=== PATIENT | female | born 1945 | race Caucasian/White ===

== ENCOUNTER 2019-12-30 21:21 | Inpatient (IN) | payer MEDICARE ==
[~2019-12-30] VITALS: Ht 170.2 cm; Wt 76.4 kg
[2019-12-30 21:54] LABS: BASOPHILS 0.6 % (0-2); EOSINOPHILS 0.7 % (0-7); HEMATOCRIT 47.1 % (36.0-48.0); HEMOGLOBIN 14.4 g/dL (12-16); IMMATURE GRANULOCYTES 0.5 % (0-5); LYMPHOCYTES 11.2 % (15-50); MCH 31.2 pg (26.0-34.0); MCHC 30.6 g/dL (31.0-37.0); MCV 101.9 fL (80.0-100.0); MONOCYTES 4.2 % (2-11); NEUTROPHILS 82.8 % (40-80); PLATELET COUNT 286 10x3/uL (130-400); RBC 4.62 10x6/uL (4.00-5.40); RDW 12.8 % (11.5-14.5); WBC 8.9 10x3/uL (4.8-10.8)
[2019-12-30 22:12] LABS: CALC OSMOLALITY 270 mosm/kg (275-300); CALCIUM 7.9 mg/dL (8.5-10.1); CARBON DIOXIDE 17.1 mmol/L (21.0-32.0); CHLORIDE - SERUM 104 mmol/L (98-107); GLUCOSE 84 mg/dL (74-106); POTASSIUM - SERUM 5.2 mmol/L (3.5-5.1); SODIUM 135 mmol/L (136-145); UREA NITROGEN 18 mg/dL (7-18); eGFR NON AFRICAN AMERICAN 58 mL/min (90-120)
[2019-12-30] MEDS ORDERED: MELOXICAM PO (22:23)
[2019-12-30] MEDS ORDERED: LISINOPRIL40 MG PO (22:24)
[2019-12-30] MEDS ORDERED: XANAX1 MG PO (22:25)
[2019-12-30 22:29] LABS: ALBUMIN 3.2 g/dL (3.4-5.0); ALKALINE PHOSPHATASE 89 U/L (30-120); ALT (SGPT) 19 U/L (10-68); BILIRUBIN - TOTAL 0.12 mg/dL (0.2-1.3); CKMB 1.3 U/L (0.0-3.6); CREATINE KINASE 151 UL (21-215); MAGNESIUM - SERUM 2.3 mg/dL (1.8-2.4); PROTEIN - SERUM 7.3 g/dL (6.4-8.2); TROPONIN-I < 0.017 ng/mL (0.000-0.060)
--- NOTE | 2019-12-30 22:33 | NUR ---
PT UP ON BEDPAN- VOIDED WITHOUT DIFFICULTY. URINE TO LAB.
[2019-12-30 22:38] LABS: BILIRUBIN NEGATIVE (NEGATIVE); EPITHELIAL CELLS 0-5 /hpf (0-5); GLUCOSE NEGATIVE (NEGATIVE); KETONE SMALL mg/dL (NEGATIVE); NITRITE NEGATIVE (NEGATIVE); RED CELLS - URINE RARE /hpf (0-5); UROBILINOGEN NORMAL (NORMAL); WHITE CELLS - URINE 0-5 /hpf (NEGATIVE)
[2019-12-30 22:39] LABS: AMORPHOUS SEDIMENT <1+ /lpf (NONE SEEN); BACTERIA MODERATE /hpf (NEGATIVE)
[2019-12-30 22:43] LABS: UDS - AMPHET NEGATIVE QUAL (NEGATIVE); UDS - BARB NEGATIVE QUAL (NEGATIVE); UDS - BENZO POSITIVE QUAL (NEGATIVE); UDS - COCAINE NEGATIVE QUAL (NEGATIVE); UDS - OPIATE NEGATIVE QUAL (NEGATIVE); UDS - PCP NEGATIVE QUAL (NEGATIVE); UDS - THC NEGATIVE QUAL (NEGATIVE)
--- NOTE | 2019-12-30 23:11 | NUR ---
ABG'S IN PROGRESS. PT RESTING QUIETLY. CALLED AND UPDATED SPOUSE, PATRICK HAYDEN AT [phone]. SPOUSE STATES PATIENT DROVE TO STORE YESTERDAY. PT STATES DRANK SCOTCH INSTEAD OF WINE TODAY- STATES "I DON'T KNOW WHY." REPORT TO KENYETTA JEFFERY.
[2019-12-31] VITALS (7 sets, daily range): BP systolic 111–147; BP diastolic 55–86; Ht 170.2 cm; Wt 76.4 kg
--- NOTE | 2019-12-31 00:41 | NUR ---
SPOUSE CALLED AND UPDATED WITH ADMISSION STATUS AND ROOM NUMBER.
--- NOTE | 2019-12-31 02:01 | NUR ---
ROCEPHIN STARTED AT 0104 FINISHED O134. 50ML INFUSED. MVI STARTED AT 0136 CONTINUED INFUSING ON TRANSFER TO FLOOR @ 125ML/HR NS BOLUS STARTED AT 0103 CONTINUED INFUSING ON TRANSFER TO FLOOR @ 999ML/HR
[2019-12-31] MEDS ORDERED: PROZAC40 MG PO (02:45)
[2019-12-31] MEDS ORDERED: TRAZODONE HCL150 MG PO (02:47)
[2019-12-31] MEDS ORDERED: GAVILAX510 GM PO (02:50)
[2019-12-31 04:53] LABS: ALBUMIN 2.6 g/dL (3.4-5.0); ANION GAP 18.1 mmol/L (8-16); BILIRUBIN - TOTAL 0.16 mg/dL (0.2-1.3); CARBON DIOXIDE 16.4 mmol/L (21.0-32.0); CREATININE - SERUM 0.9 mg/dL (0.6-1.3); POTASSIUM - SERUM 4.5 mmol/L (3.5-5.1)
--- NOTE | 2019-12-31 07:58 | NUR ---
PT LYING IN BED, IV TO LEFT AC CDI, PATENT, NS AT 75, MVI AT 125. PT STATES SHE IS HURTING ALL OVER AND VERY STIFF, ESPECIALLY ON LEFT SIDE. CINDER WORKER ARE EQUAL, ASSISTED PT TO BATHROOM, CL IN REACH, ASSUME PT CARE
--- NOTE | 2019-12-31 09:39 | NUR ---
PT WAS ON CLD TO START 12/31, CHANGED TO TODAY, PT INQUIRED WHY CL, UNSURE, AND UNABLE TO ANSWER PT QUESTION, ASKED PT TO ASK PUBLIC WEIGHER WHEN THEY MAKE ROUNDS
[2019-12-31 12:03] LABS: BASOPHILS 0.3 % (0-2); EOSINOPHILS 0.9 % (0-7); HEMATOCRIT 40.8 % (36.0-48.0); HEMOGLOBIN 12.3 g/dL (12-16); IMMATURE GRANULOCYTES 0.1 % (0-5); LYMPHOCYTES 13.8 % (15-50); MCHC 30.1 g/dL (31.0-37.0); MCV 102.8 fL (80.0-100.0); MEAN PLATELET VOLUME 10.1 fL (7.4-10.4); MONOCYTES 5.7 % (2-11); NEUTROPHILS 79.2 % (40-80); PLATELET COUNT 311 10x3/uL (130-400); RBC 3.97 10x6/uL (4.00-5.40); RDW 12.9 % (11.5-14.5); WBC 7.7 10x3/uL (4.8-10.8)
--- NOTE | 2019-12-31 16:55 | NUR ---
I have reviewed this patient and I concur with the Shift Assessment completed by the Licensed Practical Nurse today this shift.
--- NOTE | 2019-12-31 23:33 | NUR ---
REC'D CHGE OF SHIFT WALKING ROUNDS IN BED WATCHING DENIES PAIN AT PRESENT TIME.STATES HAS BEEN MORE AND MORE NERVOUS ALL DAY LONG.STATES TOOK XANAX EARLIER BUT DIDN'T SEEM TO HELP WILL CONTINUE TO MONITOR FOR ANY CHGES AND FOLLOW CURRENT PLAN OF CARE
[2020-01-01] VITALS: BP 150/78
[2020-01-01 04:00] VITALS: BP 148/81
[2020-01-01 05:30] LABS: BASOPHILS 0.5 % (0-2); EOSINOPHILS 4.4 % (0-7); HEMATOCRIT 36.5 % (36.0-48.0); HEMOGLOBIN 11.1 g/dL (12-16); IMMATURE GRANULOCYTES 0.2 % (0-5); LYMPHOCYTES 15.8 % (15-50); MCH 30.6 pg (26.0-34.0); MCHC 30.4 g/dL (31.0-37.0); MEAN PLATELET VOLUME 9.8 fL (7.4-10.4); MONOCYTES 10.5 % (2-11); NEUTROPHILS 68.6 % (40-80); RBC 3.63 10x6/uL (4.00-5.40); RDW 12.7 % (11.5-14.5); WBC 6.1 10x3/uL (4.8-10.8)
[2020-01-01 05:50] LABS: ALBUMIN 2.4 g/dL (3.4-5.0); ALKALINE PHOSPHATASE 66 U/L (30-120); BILIRUBIN - TOTAL 0.66 mg/dL (0.2-1.3); CARBON DIOXIDE 19.3 mmol/L (21.0-32.0); CHLORIDE - SERUM 106 mmol/L (98-107); MAGNESIUM - SERUM 2.4 mg/dL (1.8-2.4); POTASSIUM - SERUM 4.1 mmol/L (3.5-5.1); PROTEIN - SERUM 5.6 g/dL (6.4-8.2); SODIUM 138 mmol/L (136-145)
[2020-01-01 05:51] LABS: MCV 100.6 fL (80.0-100.0); PLATELET COUNT 247 10x3/uL (130-400)
[2020-01-01 06:37] LABS: CALC OSMOLALITY 274 mosm/kg (275-300); CREATININE - SERUM 0.6 mg/dL (0.6-1.3); GLUCOSE 97 mg/dL (74-106); UREA NITROGEN 10 mg/dL (7-18); eGFR NON AFRICAN AMERICAN > 90 mL/min (90-120)
[2020-01-01 06:39] LABS: ALT (SGPT) 18 U/L (10-68); CALCIUM 6.3 mg/dL (8.5-10.1)
[2020-01-01 08:48] VITALS: BP 129/81
--- NOTE | 2020-01-01 10:15 | NUR ---
SHE IS ALERT,TALKING. DENIES ANY NEEDS.
[2020-01-01 12:59] VITALS: BP 145/80
[2020-01-01 16:38] VITALS: BP 142/74
[2020-01-01 20:00] VITALS: BP 138/76
[2020-01-02] VITALS: BP 135/79
--- NOTE | 2020-01-02 02:37 | NUR ---
I have reviewed this patient and I concur with the Shift Assessment completed by the Licensed Practical Nurse today this shift.
[2020-01-02 04:00] VITALS: BP 143/84
[2020-01-02 05:41] LABS: BASOPHILS 0.5 % (0-2); EOSINOPHILS 8.8 % (0-7); IMMATURE GRANULOCYTES 0.3 % (0-5); LYMPHOCYTES 17.9 % (15-50); MCH 30.4 pg (26.0-34.0); MCHC 30.6 g/dL (31.0-37.0); MCV 99.4 fL (80.0-100.0); MEAN PLATELET VOLUME 9.8 fL (7.4-10.4); MONOCYTES 11.7 % (2-11); NEUTROPHILS 60.8 % (40-80); PLATELET COUNT 219 10x3/uL (130-400); RBC 3.62 10x6/uL (4.00-5.40); RDW 12.7 % (11.5-14.5); WBC 5.9 10x3/uL (4.8-10.8)
[2020-01-02 06:00] LABS: ALBUMIN 2.3 g/dL (3.4-5.0); ALKALINE PHOSPHATASE 66 U/L (30-120); ALT (SGPT) 18 U/L (10-68); BILIRUBIN - TOTAL 0.33 mg/dL (0.2-1.3); CHLORIDE - SERUM 108 mmol/L (98-107); CREATININE - SERUM 0.7 mg/dL (0.6-1.3); GLUCOSE 94 mg/dL (74-106); MAGNESIUM - SERUM 2.1 mg/dL (1.8-2.4); PROTEIN - SERUM 5.5 g/dL (6.4-8.2); SODIUM 138 mmol/L (136-145); eGFR NON AFRICAN AMERICAN 87 mL/min (90-120)
[2020-01-02 06:10] LABS: CALC OSMOLALITY 272 mosm/kg (275-300); UREA NITROGEN 5 mg/dL (7-18)
[2020-01-02 06:12] LABS: CALCIUM 6.7 mg/dL (8.5-10.1)
--- NOTE | 2020-01-02 08:00 | NUR ---
ASSESSMENT PER FLOW SHEET. PATIENT IS WITHOUT DISTRESS.CALL LIGHT IN REACH
[2020-01-02 08:54] VITALS: BP 151/91
--- NOTE | 2020-01-02 09:39 | CN ---
PATIENT NAME:BENJA HAYDEN MEDICAL RECORD: [id number] : 47 LOCATION:D.[id number] ADMIT DATE: 12/31/19 ACCOUNT: [id number] CONSULTING PHYSICIAN: ANGEL MARTE MD REFERRING PHYSICIAN: OLEG MATIAS MD DATE OF CONSULTATION: 01/01/2020 PSYCHIATRIC CONSULTATION IDENTIFYING DATA: The patient is 74 years old and she was admitted to the hospital secondary to some generalized weakness and gait instability. CHIEF COMPLAINT: Depression. HISTORY OF PRESENT ILLNESS: I am asked to see the patient because she reports depressive symptoms and says that she drinks too much. On detailed examination, the summary of her situation is that she is unhappy with her marriage. She and her of many years argue constantly. She drinks 4 wine coolers every night to deal with the anxiety that she has and she endorses numerous neurovegetative depressive symptoms. She does not have any psychotic symptoms nor does she have any thoughts of harming herself or others. She is simply unhappy and distressed. MENTAL STATUS EXAMINATION: The patient is awake, alert and fully oriented to person, place, time and situation. Her mood is depressed. Her affect is constricted. Thought processes are circumstantial. Memory, concentration, and abstraction abilities are mildly impaired and she denies that she would seek to harm herself or others as well as psychotic symptoms. ASSESSMENT: 1. Alcohol use disorder, moderate. 2. Major depressive episode, moderate severity without psychotic features. PLAN: At this time, the patient has been advised to stop drinking. Based on the amount she drinks it is unlikely that she will experience dangerous withdrawal symptoms assuming she is telling me a truthful amount. She says that she is aware that the drinking makes her more depressed and anxious and she says that she feels comfortable that she can stop it without any adverse effects. She has been on the Prozac for months and says that it has not helped. I am going to change her to a different antidepressant medication and that dosage will need to be monitored and titrated upward based on response. In addition to this, I have recommended outpatient psychiatric care and would recommend either the [facility], Dr. Klein or Dr. Kidd. She is furthermore in need of outpatient therapy, which can be arranged through one of the psychiatric offices or independently. I do not think she is acutely dangerous to herself or others, although she is quite distressed and I would recommend that her primary care doctor see her within a week or two of discharge just for followup to see if she is following these recommendations and to make any adjustments are coarse corrections that might be indicated. TRANSINT:[id number] Voice Confirmation ID: [id number] DOCUMENT ID: [id number] CONSULT REPORT [id number] BENJA HAYDEN, ANGEL REEVES at 0939 CC: [id number] DICTATION DATE: 01/01/20 1226 APPLICATION SUPPORT CONSULTANT: 01/01/20 1501 ADM IN [facility] [address] [id number]
[2020-01-02] MEDS ORDERED: EFFEXOR50 MG PO (13:49)
[2020-01-02] MEDS ORDERED: TUMS PO (13:56)
--- NOTE | 2020-01-02 14:48 | MORECARE ---
CASE MANAGEMENT DISCHARGE SUMMARY PATIENT: BENJA HAYDEN UNIT: [id number] ADM DATE: 12/31/19 AGE: 74 : 46 SEX: F ROOM/BED: D.2225 AUTHOR: RICHI ZENDEJAS PHYSICIAN: REFERRING PHYSICIAN: OLEG MATIAS MD DATE OF SERVICE: 01/02/20 Discharge Plan Patient Name: BENJA HAYDEN Facility: [facility]:[place] : 1945 Planned Disposition: Home or Self Care Anticipated Discharge Date: Discharge Date: Expected LOS: Initial Reviewer: [email or web address] Initial Review Date: 12/31/2019 Generated: 01/02/20 3:47 pm Patient Name: BENJA HAYDEN Page [id number] at 1448 All edits/amendments must be made on the electronic document DICTATION DATE: 01/02/20 1447 FLOOR COVERINGS INSTALLER: JOSH 01/02/20 1447 RPT#: [id number] DC DATE: STATUS: ADM IN [facility] [address] [place] [address] END OF REPORT
--- NOTE | 2020-01-02 14:54 | MORECARE ---
CASE MANAGEMENT DISCHARGE SUMMARY PATIENT: BENJA HAYDEN UNIT: [id number] ADM DATE: 12/31/19 AGE: 74 : 46 SEX: F ROOM/BED: D.2225 AUTHOR: CRISTIANA,DOC PHYSICIAN: REFERRING PHYSICIAN: OLEG MATIAS MD DATE OF SERVICE: 01/02/20 Discharge Plan Patient Name: BENJA HAYDEN Facility: [facility]:[place] : 1945 Planned Disposition: Home or Self Care Anticipated Discharge Date: Discharge Date: Expected LOS: Initial Reviewer: [email or web address] Initial Review Date: 12/31/2019 Generated: 01/02/20 3:54 pm Comments DCP- Discharge Planning Updated by [email or web address]: Theresa Ingram on 01/02/20 1:[address] Patient Name: BENJA HAYDEN Admission Status: ER Accout number: [id number] Admission Date: 12-31-2019 : 1945 Admission Diagnosis:ACIDOSIS Attending: OLEG MATIAS Current LOS: 2 Anticipated DC Date: Planned Disposition: Home or Self Care Primary Insurance: [employer] CHOICE PPO MCR ADVANT Discharge Planning Comments: CM met with patient to complete initial dc planning assessment. CM educated patient on the CM role and verbal consent given by patient to complete assessment. Patient lives at home with spouse, adult daughter and 19 year old grandson. At discharge patient plans to return home and feels this is a safe discharge. 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 CM discussed availability of home health, rehab services, and medical equipment. She has a cane at home. She stated that she has [employer] Contact Worker [employer] Care Policy if she needs help she has access to it. She stated that her grandson was a very good helper for her. I asked her again abut feeling safe about going home and she said "yes, we just need Dr Castle to come over " Patient denied known discharge needs at this time. CM will continue to follow and will assist as needed with dc plans/needs. Marine Insurance Claim Examiner: Theresa Ingram DCPIA - Discharge Planning Initial Assessment Updated by [email or web address]: Theresa Ingram on 01/02/20 2:47 pm * Is the patient Alert and Oriented? Yes * How many steps to enter\\exit or inside your home? STEPS * PCP THAO * Pharmacy [facility] [address] * Preadmission Environment Home with Family * ADLs Independent * Equipment Cane * List name and contact numbers for known caregivers / representatives who currently or will assist patient after discharge: PATRICK HAYDEN (SPOUSE) [phone] * Verbal permission to speak to the caregivers and representatives has been obtained from the patient. N/A * Community resources currently utilized Other * Please name any agencies selected above. [facility] ( RETIREMENT CARE POLICY) * Additional services required to return to the preadmission environment? No * Can the patient safely return to the preadmission environment? Yes * Has this patient been hospitalized within the prior 30 days at any hospital? No Last DP export: 01/02/20 1:48 p Patient Name: BENJA HAYDEN Page [phone] at 5967 All edits/amendments must be made on the electronic document DICTATION DATE: 01/02/201453 WAX COATING MACHINE TENDER: JOSH 01/02/201453 RPT#: [id number] DC DATE: STATUS: ADM IN [facility] [address] [place] [address] END OF REPORT
--- NOTE | 2020-01-02 15:38 | NUR ---
DISCHARGE INSTRUCTIONS,STATES UNDERSTANDING. IV DCD WITH CATH TIP INTACT
--- NOTE | 2020-01-02 16:13 | NUR ---
LEFT UNIT FOR TRANSPORT HOME VIA WHEELCHAIR
--- NOTE | 2020-01-04 08:24 | MORECARE ---
CASE MANAGEMENT DISCHARGE SUMMARY PATIENT: BENJA HAYDEN UNIT: [id number] ADM DATE: 12/31/19 AGE: 74 : 46 SEX: F ROOM/BED: D.2225 AUTHOR: CRISTIANA,DOC PHYSICIAN: REFERRING PHYSICIAN: OLEG MATIAS MD DATE OF SERVICE: 01/04/20 Discharge Plan Patient Name: BENJA HAYDEN Facility: [facility]:[place] : 1945 Planned Disposition: Home or Self Care Anticipated Discharge Date: Discharge Date: 01/02/2020 Expected LOS: 0 Initial Reviewer: [email or web address] Initial Review Date: 12/31/2019 Generated: 01/04/20 9:23 am Comments DCP- Discharge Planning Updated by [email or web address]: Theresa Ingram on 01/02/20 1:[address] Patient Name: BENJA HAYDEN Admission Status: ER Accout number: [id number] Admission Date: 12-31-2019 : 1945 Admission Diagnosis:ACIDOSIS Attending: OLEG MATIAS Current LOS: 2 Anticipated DC Date: Planned Disposition: Home or Self Care Primary Insurance: [employer] CHOICE PPO MCR ADVANT Discharge Planning Comments: CM met with patient to complete initial dc planning assessment. CM educated patient on the CM role and verbal consent given by patient to complete assessment. Patient lives at home with spouse, adult daughter and 19 year old grandson. At discharge patient plans to return home and feels this is a safe discharge. 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 CM discussed availability of home health, rehab services, and medical equipment. She has a cane at home. She stated that she has [employer] Care Policy if she needs help she has access to it. She stated that her grandson was a very good helper for her. I asked her again abut feeling safe about going home and she said "yes, we just need Dr Castle to come over " Patient denied known discharge needs at this time. CM will continue to follow and will assist as needed with dc plans/needs. Offset Press Assistant: Theresa Ingram DCPIA - Discharge Planning Initial Assessment Updated by [email or web address]: Theresa Ingram on 01/02/20 2:47 pm * Is the patient Alert and Oriented? Yes * How many steps to enter\\exit or inside your home? STEPS * PCP THAO * Pharmacy [facility] [address] * Preadmission Environment Home with Family * ADLs Independent * Equipment Cane * List name and contact numbers for known caregivers / representatives who currently or will assist patient after discharge: PATRICK HAYDEN (SPOUSE) [phone] * Verbal permission to speak to the caregivers and representatives has been obtained from the patient. N/A * Community resources currently utilized Other * Please name any agencies selected above. [facility] ( MARKETING UNDERWRITER CARE POLICY) * Additional services required to return to the preadmission environment? No * Can the patient safely return to the preadmission environment? Yes * Has this patient been hospitalized within the prior 30 days at any hospital? No Last DP export: 01/02/20 1:54 p Patient Name: BENJA HAYDEN Page 38889 at 0824 All edits/amendments must be made on the electronic document DICTATION DATE: 01/04/20822 BARBER STYLIST: JOSH 01/04/20822 RPT#: [id number] DC DATE:01/02/20 STATUS: DIS IN [facility] [address] [place] [place] [address] END OF REPORT
== END 2020-01-02 16:13 | disposition home or self-care (01) | DRG 897 ==
LOC: D.ER 21:21 → D.MS 12-31 00:31
PROVIDERS: Emergency Medicine; Family Medicine Adult Medicine; ADMIT Internal Medicine Nephrology; ATTEND Internal Medicine Nephrology
DX: F10.129 Alcohol abuse with intoxication, unspecified (principal); E87.2 Acidosis; N39.0 Urinary tract infection, site not specified; I10 Essential (primary) hypertension; F32.9 Major depressive disorder, single episode, unspecified